=== PATIENT | male | born 1960 | race Caucasian/White ===

== ENCOUNTER → 2016-12-22 | Outpatient (CLI) | payer OTHER ==
[~2016-12-22] MED LIST: CEPH500C3 PO; NOVOINJ3; NOVONP2 SQ; ROSU40 PO
--- NOTE | 2016-12-22 21:40 | EKG ---
Date Performed: 12/22/2016 Time Performed: 08:35:56 PTAGE: 56 years EKG: Sinus rhythm . rSr'(V1) - probable normal variant Normal ECG NO PREVIOUS TRACING DOCTOR: Mykel Paez Interpretating Date/Time 12/22/2016 21:39:26
== END ==
LOC: HCAV 08:30
PROVIDERS: ATTEND General Practice
DX: Z01.810 Encounter for preprocedural cardiovascular examination (principal)
CPT/HCPCS: 93005